=== PATIENT | female | born 1995 | race Caucasian/White ===

== ENCOUNTER → 2020-05-30 10:06 | Outpatient (CLI) | payer SELFPAY ==
[2020-06-01 03:06] LABS: AFP MoM Value 0.89 (.); AFP Value-EIA 55.6 ng/mL (.); Comment Report (.); DIA MoM Value 0.44 (.); DIA Value-EIA 93.47 pg/mL (.); DSR (By Age) 1067 (.); DSR (Second Trimester) 10000 (.); Gestat. Age Based On As provided (.); Gestational Age 21.1 WEEKS (.); Insulin Dep Diabetes No (.); Maternal Age At EDD 24.1 yr (.); hCG MoM 0.73 (.); hCG Value 16003 mIU/mL (.)
== END ==
PROVIDERS: Visit Provider Obstetrics & Gynecology
DX: Z34.82 Encounter for supervision of other normal pregnancy, second trimester (principal)
CPT/HCPCS: 36415; 82105; 82677; 84702